=== PATIENT | female | born 1955 | race Caucasian/White ===

== ENCOUNTER 2017-04-29 06:15 | Outpatient (CLI) | payer OTHER ==
[~2017-04-29 06:15] MED LIST: BIOT5TAB PO; BUPR150T6 PO; CYCL-394 PO; DOCU100C40 PO; FLUT10SP NS; LANS30CA56 PO; MELO-83 PO; MONT10TA21 PO; MULT-785 PO; TRAM50TA2 PO; VALA10002 PO; ZOLP5TAB8 PO
[2017-05-12] MEDS ORDERED: EPIN0.3P8 IM (08:58)
[2017-05-12] MEDS ORDERED: ASPI-144 (08:58)
== END 2017-04-29 23:59 | disposition home or self-care (01) ==
LOC: 64 CT 06:15
PROVIDERS: ATTEND Otolaryngology
DX: B47.9 Mycetoma, unspecified (principal); F17.200 Nicotine dependence, unspecified, uncomplicated; Z85.828 Personal history of other malignant neoplasm of skin
CPT/HCPCS: 70450; 70487

== ENCOUNTER 2017-05-14 05:52 | Day surgery (SDC) | payer OTHER ==
[2017-05-14] VITALS (11 sets, daily range): BP systolic 129–151; BP diastolic 70–92
[~2017-05-14] VITALS: Ht 167.6 cm; Wt 78.9 kg
[~2017-05-14 05:52] MED LIST changes: +ASPI-144; -BIOT5TAB PO; -DOCU100C40 PO; +EPIN0.3P8 IM; -VALA10002 PO; +famotidine 20mg tablet PO ONE; +ringers solution, lacted 1,000 ML IV SCH
[2017-05-14] MEDS ORDERED: LIDOcaine 1% (10mg/ml) 2ml vial ONE (06:22)
[2017-05-14] MEDS ORDERED: cocaine 4% topical solution 4ml bottle ONE (06:31)
[2017-05-14] MEDS ORDERED: mupirocin 2% ointment 22GM ONE ×2 (06:31→06:54)
[2017-05-14] MEDS ORDERED: scopolamine 1.5mg patch.TD72 TD ONE (06:45)
[2017-05-14] MEDS ORDERED: LACT1CAP65 PO (06:46)
[2017-05-14] MEDS ORDERED: DOCU-28 PO (06:47)
[2017-05-14] MEDS ORDERED: cefTAZidime 1gm inj IV ONE (07:15)
[2017-05-14] MEDS ORDERED: LIDOCAINE 1% IJ ONE (07:30)
[2017-05-14] MEDS ORDERED: EPINEPHRINE IJ ONE ×2 (07:30→07:35)
[2017-05-14] MEDS ORDERED: BUPIVACAINE 0.5% IJ ONE (07:35)
[2017-05-14] MEDS ORDERED: sevoflurane 250ml liquid IH ONE (08:06)
[2017-05-14] MEDS ORDERED: fentaNYL/PF 50MCG/1 ML 2ML syringe ONE (08:10)
[2017-05-14] MEDS ORDERED: midazolam 2 mg/2 ml injection ONE (08:11)
[2017-05-14] MEDS ORDERED: propofol inj 20 ML IV ONE (08:13)
[2017-05-14] MEDS: oxymetazoline 15 ML nasal spray NS ONE ×2 (08:45→10:12)
[2017-05-14] MEDS ORDERED: ringers solution, lacted 1,000 ML IV SCH (09:04)
[2017-05-14] MEDS ORDERED: proCHLORperazine 10 MG/2 ml inj IV PRN (09:05)
[2017-05-14] MEDS ORDERED: morphine sulfate 8 MG/ML SYRINGE IV PRN ×2 (09:05)
[2017-05-14] MEDS ORDERED: ondansetron/PF 4mg/2ml inj IV PRN (09:05)
[2017-05-14] MEDS ORDERED: meperidine/PF 25mg/ml syringe IV PRN ×3 (09:05)
[2017-05-14] MEDS ORDERED: dexamethasone sod phosphate 4mg/ml inj. ONE (09:23)
[2017-05-14] MEDS ORDERED: rocuronium 10mg/ml inj IV ONE (09:23)
[2017-05-14] MEDS ORDERED: ondansetron/PF 4mg/2ml inj ONE (09:24)
[2017-05-14] MEDS ORDERED: salt irrigation nasal spray 45 ML SPRAY NS SCH (11:00)
[2017-05-14] MEDS ORDERED: mupirocin 2% ointment 22GM TP SCH (13:00)
[2017-05-14] MEDS ORDERED: oxymetazoline 15 ML nasal spray NS SCH (20:00)
== END 2017-05-14 11:38 | disposition home or self-care (01) ==
LOC: PAS 05:52
PROVIDERS: ATTEND Otolaryngology
DX: J34.3 Hypertrophy of nasal turbinates (principal); J34.1 Cyst and mucocele of nose and nasal sinus
CPT/HCPCS: 30140; 31255; 31288; 61782; 87070; 87102; 87176; 93005; A6449; C9250; J0171; J1100; J2250; J2405; J2704; J3010; J3490; J7030; J7120; A7000; J0713

== ENCOUNTER 2017-05-31 07:06 | Outpatient (CLI) | payer OTHER ==
[~2017-05-31 07:06] MED LIST changes: +DOCU-28 PO; +LACT1CAP65 PO; -famotidine 20mg tablet PO ONE; -ringers solution, lacted 1,000 ML IV SCH
[2017-06-01 08:22] LABS: IMMUNOGLOBULIN A, QN, SERUM 192 mg/dL (87-352); IMMUNOGLOBULIN M, QN, SERUM 108 mg/dL (26-217)
[2017-06-02 11:16] LABS: IMMUNOGLOBULIN G, QN, SERUM 856 mg/dL (700-1600)
== END 2017-05-31 23:59 | disposition home or self-care (01) ==
LOC: LAB 07:06
PROVIDERS: ATTEND Otolaryngology
DX: D80.3 Selective deficiency of immunoglobulin G [IgG] subclasses (principal); F17.200 Nicotine dependence, unspecified, uncomplicated; Z85.828 Personal history of other malignant neoplasm of skin
CPT/HCPCS: 36415; 82784; 82785; 82787

== ENCOUNTER 2017-08-04 13:38 | Outpatient (CLI) | payer OTHER | END 2017-08-04 23:59 | disposition home or self-care (01) | LOC: LAB 13:38 | PROVIDERS: ATTEND Otolaryngology | DX: D80.3 Selective deficiency of immunoglobulin G [IgG] subclasses (principal) | CPT/HCPCS: 36415 ==

== ENCOUNTER 2018-01-11 15:07 | Outpatient (CLI) | payer OTHER | END 2018-01-11 23:59 | disposition home or self-care (01) | LOC: RAD 15:07 | PROVIDERS: ATTEND Family Medicine | DX: M25.861 Other specified joint disorders, right knee (principal); M25.561 Pain in right knee; Z90.710 Acquired absence of both cervix and uterus; Z96.652 Presence of left artificial knee joint; Z79.82 Long term (current) use of aspirin | CPT/HCPCS: 73564 ==

== ENCOUNTER 2018-06-13 11:38 | Outpatient (CLI) | payer OTHER | END 2018-06-13 23:59 | disposition home or self-care (01) | LOC: RAD 11:38 | PROVIDERS: ATTEND Family Medicine | DX: S83.231A Complex tear of medial meniscus, current injury, right knee, initial encounter (principal); M25.461 Effusion, right knee; Z79.899 Other long term (current) drug therapy; Z88.2 Allergy status to sulfonamides; Z91.018 Allergy to other foods; Z88.8 Allergy status to other drugs, medicaments and biological substances; X58.XXXA Exposure to other specified factors, initial encounter; Y93.89 Activity, other specified; Y92.89 Other specified places as the place of occurrence of the external cause; Y99.8 Other external cause status | CPT/HCPCS: 73721 ==

== ENCOUNTER 2018-08-03 05:32 | Inpatient (IN) | payer OTHER ==
[2018-07-27 09:33] LABS: BASOPHILS % (AUTO) 0.2 % (0-1); EOSINOPHILS # (AUTO) 0.1 X10'3 (0-0.9); EOSINOPHILS % (AUTO) 1.7 % (0-6); LYMPHOCYTES # (AUTO) 1.7 X10'3 (1.1-4.8); LYMPHOCYTES % (AUTO) 31.2 % (21-51); MEAN CORPUSCULAR HEMOGLOBIN 28.7 PG (27.0-31.0); MEAN CORPUSCULAR HGB CONC 33.3 g/dL (33.0-36.5); MEAN CORPUSCULAR VOLUME 86.2 FL (78-98); MEAN PLATELET VOLUME 8.1 FL (7.4-10.4); MONOCYTES # (AUTO) 0.6 X10'3 (0-0.9); MONOCYTES % (AUTO) 11.1 % (2-12); NEUTROPHILS % (AUTO) 55.8 % (42-75); PRE OP HEMATOCRIT 39.4 % (35.0-45.0); PRE OP HEMOGLOBIN 13.1 g/dL (12.0-16.0); PRE OP PLATELET COUNT 247 X10'3 (140-440); RED BLOOD COUNT 4.57 X10'6 (4.20-5.60); RED CELL DISTRIBUTION WIDTH 13.1 % (11.5-14.5)
[2018-07-27 09:34] LABS: ALBUMIN 3.7 G/DL (3.4-5.0); ALBUMIN/GLOBULIN RATIO 1.1 (1.1-1.5); ALKALINE PHOSPHATASE 75 IU/L (46-116); BLOOD UREA NITROGEN 19 MG/DL (7-18); BUN/CREATININE RATIO 22.1 (6.6-38.0); CALCIUM 9.4 MG/DL (8.5-10.1); CHLORIDE 104 MMOL/L (99-107); CREATININE 0.86 MG/DL (0.40-0.90); PRE OP ALT 31 U/L (30-65); PRE OP ANION GAP 7 (8-16); PRE OP AST 20 U/L (10-37); PRE OP BILIRUB, TOTAL 0.4 MG/DL (0.0-1.0); PRE OP GLUCOSE 87 MG/DL (70-104); PRE OP POTASSIUM 4.1 MMOL/L (3.4-5.1); PRE OP SODIUM 140 MMOL/L (135-145); TOTAL CARBON DIOXIDE 28.8 MMOL/L (24-32); TOTAL PROTEIN 7.1 G/DL (6.4-8.2); eGFR 67 ML/MIN
[2018-08-03] VITALS (17 sets, daily range): BP systolic 110–142; BP diastolic 55–91
[~2018-08-03] VITALS: Ht 167.6 cm; Wt 77.1 kg
[~2018-08-03 05:32] MED LIST changes: -ASPI-144; +FIBER PO; +acetaminophen 325mg tablet PO ONE; +ceFAZolin 2gm in dextrose, iso 100 ML IV ONE; +famotidine 20mg tablet PO ONE; +gabapentin 300mg capsule PO ONE; +oxyCODONE SR 10mg (sust. release) tab -2 tabs (20mg) PO ONE; +ringers solution, lacted 1,000 ML IV SCH; +scopolamine 1.5mg patch.TD72 TD ONE; +tranexamic acid inj. 1,000 MG in normal saline 100 ML IV ONE; +vancomycin inj 1,500 MG in normal saline 300ml IV soln IV ONE
[2018-08-03] MEDS ORDERED: LIDOcaine 1% (10mg/ml) 2ml vial ONE (05:51)
[2018-08-03] MEDS ORDERED: ceFAZolin 1000mg inj ONE ×2 (06:54→07:01)
[2018-08-03] MEDS ORDERED: BUPIVAcaine/PF 2.5mg/ml (0.25%) 10ml vial ONE (06:54)
[2018-08-03] MEDS ORDERED: vancomycin 1,000mg inj ONE (07:01)
[2018-08-03] MEDS ORDERED: fentaNYL/PF 50MCG/1 ML 2ML syringe ONE (07:18)
[2018-08-03] MEDS ORDERED: MIDAZolam 1mg/ml 10ml vial ONE (07:18)
[2018-08-03] MEDS ORDERED: [UNRECOGNIZED DRUG - OTHER] IU ONE ×5 (07:25)
[2018-08-03] MEDS ORDERED: EPINEPHRINE IU ONE ×5 (07:25)
[2018-08-03] MEDS ORDERED: KETOROLAC TROMETH IU ONE ×5 (07:25)
[2018-08-03] MEDS ORDERED: ROPIVACAINE IU ONE ×5 (07:25)
[2018-08-03] MEDS ORDERED: mupirocin 2% ointment 22GM ONE (07:46)
[2018-08-03] MEDS ORDERED: ringers solution, lacted 1,000 ML IV SCH (08:29)
[2018-08-03] MEDS ORDERED: proCHLORperazine 10 MG/2 ml inj IV PRN (08:30)
[2018-08-03] MEDS ORDERED: meperidine/PF 25mg/ml syringe IV PRN ×3 (08:30)
[2018-08-03] MEDS ORDERED: morphine 4 MG/ML inj SYRINge IV PRN ×2 (08:30)
[2018-08-03] MEDS ORDERED: ondansetron/PF 4mg/2ml inj IV PRN ×2 (08:30→10:20)
[2018-08-03] MEDS ORDERED: ROPIVAcaine 0.5% (5mg/ml) 30ml vial ONE (10:03)
[2018-08-03] MEDS ORDERED: dexamethasone sod phosphate 4mg/ml inj. ONE (10:03)
[2018-08-03] MEDS ORDERED: HYDROmorphone inj. 0.5 MG/0.5 ML DISP.SYRIN IV PRN (10:20)
[2018-08-03] MEDS ORDERED: magnesium hydroxide 30ml (MOM) UD suspension PO PRN (10:20)
[2018-08-03] MEDS ORDERED: HYDROmorphone 1 mg/ml syringe IV PRN (10:20)
[2018-08-03] MEDS ORDERED: acetaminophen 325mg tablet PO PRN (10:20)
[2018-08-03] MEDS ORDERED: bisacodyl 10mg suppository rectal RC PRN (10:20)
[2018-08-03] MEDS ORDERED: diphenhydrAMINE 25mg capsule PO PRN ×2 (10:20)
--- NOTE | 2018-08-03 10:54 | NUR ---
Received from OR via , accompanied by Anesthesiologist TRIP and report given by Anesthesiolgist. AWAKE IN NO RESP DISTRESS SKIN WARM AND DRY HOB AND FOB ELEVATED. FEET WARM PINK GOOD CAP REFILL AND PEDAL PULSES. NO CO PAIN , SCDS ON, HUSSEIN SECURED WITH CLEAR YELLOW URINE.ALDO ACOSTAG DI, HAS ON-C. HAS HYPOALLERGENIC SHEETS.
[2018-08-03] MEDS ORDERED: cyclobenzaprine 10mg tablet PO PRN (11:15)
[2018-08-03] MEDS ORDERED: zolpidem 5mg tablet PO PRN (11:15)
[2018-08-03] MEDS: ROPIVAcaine 0.2%/PF PAIN PUMP 550 ML IJ SCH (11:34)
--- NOTE | 2018-08-03 12:07 | NUR ---
Report called to receiving nurse. Transferred via BED Belongings . Special Issues communicated to receiving nurse.AWAKE VS WNL NO CO PAIN, DSG DI, ON-Q AT 8. ALDO DSG DI, SCDS CONT, HUSSEIN WITH QS CLEAER YELLOW URINE. GOOD PEDAL PULSES. PT IN HER OWN GOWN. TO ROOM WITH .
[2018-08-03] MEDS ORDERED: tranexamic acid inj. 800 MG in normal saline 100ml IV soln 100 ML IV ONE (13:30)
[2018-08-03] MEDS: gabapentin 300mg capsule PO SCH ×2 (14:37→20:30)
[2018-08-03] MEDS: potassium cl 20mEq in 1/2 NS 1,000 ML IV SCH ×2 (14:37→18:19)
[2018-08-03] MEDS: acetaminophen 325mg tablet PO SCH ×2 (14:37→20:30)
[2018-08-03] MEDS: oxyCODONE IR 5mg (immed. release) tablet PO PRN ×2 (14:48→20:00)
--- NOTE | 2018-08-03 18:39 | NUR ---
Report to Soila BENAVIDES
[2018-08-03] MEDS: docusate sod 100mg capsule PO SCH (20:00)
[2018-08-03] MEDS ORDERED: vancomycin/NS 1 GM ADD-VANTAGE 250 ML IV SCH (20:00)
[2018-08-03] MEDS: buPROPion 75mg tablet PO SCH (20:00)
[2018-08-03] MEDS: lactobacillus rhamnosus 10,000 MMU CELLS/CAPSULE PO SCH (20:29)
[2018-08-03] MEDS: sennosides 8.6mg tablet PO SCH (20:30)
[2018-08-04] VITALS (7 sets, daily range): BP systolic 109–142; BP diastolic 55–88
[2018-08-04] MEDS: oxyCODONE IR 5mg (immed. release) tablet PO PRN ×4 (02:06→17:05)
[2018-08-04] MEDS: acetaminophen 325mg tablet PO SCH ×4 (02:07→20:21)
[2018-08-04] MEDS: potassium cl 20mEq in 1/2 NS 1,000 ML IV SCH ×3 (02:12→20:19)
--- NOTE | 2018-08-04 06:00 | NUR ---
Patient in room ORTHO 4016. I have received report from Soila BENAVIDES and had the opportunity to ask questions and assume patient care.
[2018-08-04] MEDS ORDERED: calcium polycarbophil 625mg tablet PO SCH (08:00)
[2018-08-04] MEDS: pantoprazole 40mg Tablet.DR PO SCH (08:03)
[2018-08-04] MEDS: fluticasone nasal spray 16GM bottle NS SCH (08:04)
[2018-08-04] MEDS: lactobacillus rhamnosus 10,000 MMU CELLS/CAPSULE PO SCH ×2 (08:06→20:20)
[2018-08-04] MEDS: docusate sod 100mg capsule PO SCH ×2 (08:06→20:21)
[2018-08-04] MEDS: gabapentin 300mg capsule PO SCH ×3 (08:07→20:21)
[2018-08-04] MEDS: montelukast 10mg tablet PO SCH (08:07)
[2018-08-04] MEDS: multivitamins, therapeutics tablet PO SCH (08:08)
[2018-08-04] MEDS: buPROPion 75mg tablet PO SCH ×2 (08:09→20:21)
[2018-08-04] MEDS: aspirin 325mg tablet PO SCH (08:09)
[2018-08-04] MEDS ORDERED: ASPI-1 PO (08:15)
[2018-08-04 08:58] LABS: BASOPHILS % (AUTO) 0.2 % (0-1); EOSINOPHILS # (AUTO) 0.1 X10'3 (0-0.9); EOSINOPHILS % (AUTO) 1.1 % (0-6); HEMATOCRIT 36.4 % (35.0-45.0); HEMOGLOBIN 12.2 g/dl (12.0-16.0); LYMPHOCYTES # (AUTO) 1.6 X10'3 (1.1-4.8); LYMPHOCYTES % (AUTO) 21.2 % (21-51); MEAN CORPUSCULAR HEMOGLOBIN 28.8 PG (27.0-31.0); MEAN CORPUSCULAR HGB CONC 33.4 g/dL (33.0-36.5); MEAN CORPUSCULAR VOLUME 86.3 FL (78-98); MEAN PLATELET VOLUME 8.2 FL (7.4-10.4); MONOCYTES % (AUTO) 13.2 % (2-12); NEUTROPHILS # (AUTO) 4.8 X10'3 (1.8-7.7); NEUTROPHILS % (AUTO) 64.3 % (42-75); PLATELET COUNT 204 X10'3 (140-440); RED BLOOD COUNT 4.21 X10'6 (4.20-5.60); RED CELL DISTRIBUTION WIDTH 13.7 % (11.5-14.5); WHITE BLOOD COUNT 7.5 X10'3 (4.5-11.0)
[2018-08-04 08:59] LABS: ALBUMIN 3.1 G/DL (3.4-5.0); ANION GAP 4 (8-16); BLOOD UREA NITROGEN 10 MG/DL (7-18); BUN/CREATININE RATIO 13.3 (6.6-38.0); CALCIUM 8.9 MG/DL (8.5-10.1); CHLORIDE 107 MMOL/L (99-107); CREATININE 0.75 MG/DL (0.40-0.90); GLUCOSE 100 MG/DL (70-104); SODIUM 143 MMOL/L (135-145); TOTAL CARBON DIOXIDE 31.6 MMOL/L (24-32); eGFR 79 ML/MIN
--- NOTE | 2018-08-04 11:01 | NUR ---
Joint replacement consult: Pt seen by CLARY for written/verbal high protein ed. RD reviewed high protein needs for wound healing, immune strength, high protein foods, and protein supplementation options. RD contact information provided in case of further questions. Pt agrees to chocolate Hero high protein shake BIDBD; pt has allergies to oranges, onions, bananas, apples, dislikes milk to drink and cream of wheat, pepper, and ravi peppers; CLARY d/w dietary. Addendum: 08/04/18 at [address] Amended: Links added.
--- NOTE | 2018-08-04 11:33 | NUR ---
Student documentation: I have reviewed all interventions, assessments performed and documented by Pauline Forrester. Student Medication Administration: For this medication-pass time frame, all medication were reviewed, dispensed, administered and documented per hospital policy by Pauline Forrester.
--- NOTE | 2018-08-04 16:49 | NUR ---
Student documentation: I have reviewed and agree with all interventions, assessments performed and documented by SN Timmy.
[2018-08-04] MEDS ORDERED: High Protein Shake w/Arg/Glut/Ca2+Bmb (Juven 19.3gm) pkt 240ml PO SCH (17:30)
--- NOTE | 2018-08-04 18:00 | NUR ---
Problems reprioritized. Patient report given, questions answered & plan of care reviewed with Simona BENAVIDES.
--- NOTE | 2018-08-04 18:17 | NUR ---
Patient in room ORTHO 4016. I have received report from KENNEDY Norris and had the opportunity to ask questions and assume patient care.
[2018-08-04] MEDS: sennosides 8.6mg tablet PO SCH (20:21)
[2018-08-04] MEDS: ROPIVAcaine 0.2%/PF PAIN PUMP 550 ML IJ SCH (20:28)
[2018-08-05] MEDS: oxyCODONE IR 5mg (immed. release) tablet PO PRN ×2 (00:34→05:40)
[2018-08-05] MEDS: acetaminophen 325mg tablet PO SCH ×2 (02:00→07:57)
[2018-08-05] MEDS: potassium cl 20mEq in 1/2 NS 1,000 ML IV SCH (02:19)
[2018-08-05 06:00] VITALS: BP 164/80
--- NOTE | 2018-08-05 06:00 | NUR ---
Patient in room ORTHO 4016. I have received report from Simona BENAVIDES and had the opportunity to ask questions and assume patient care.
--- NOTE | 2018-08-05 06:10 | NUR ---
Problems reprioritized. Patient report given, questions answered & plan of care reviewed with KENNEDY Al.
[2018-08-05] MEDS: multivitamins, therapeutics tablet PO SCH (07:56)
[2018-08-05] MEDS: docusate sod 100mg capsule PO SCH (07:56)
[2018-08-05] MEDS: pantoprazole 40mg Tablet.DR PO SCH (07:56)
[2018-08-05] MEDS: aspirin 325mg tablet PO SCH (07:56)
[2018-08-05] MEDS: gabapentin 300mg capsule PO SCH (07:56)
[2018-08-05] MEDS: lactobacillus rhamnosus 10,000 MMU CELLS/CAPSULE PO SCH (07:57)
[2018-08-05] MEDS: montelukast 10mg tablet PO SCH (07:57)
[2018-08-05] MEDS: buPROPion 75mg tablet PO SCH (07:57)
[2018-08-05] MEDS: fluticasone nasal spray 16GM bottle NS SCH (07:57)
[2018-08-05 10:00] VITALS: BP 152/88
[2018-08-05] MEDS ORDERED: acetaminophen 325mg tablet PO PRN (10:20)
--- NOTE | 2018-08-05 12:53 | NUR ---
Patient stable for discharge home with sister today at 1230. All discharge instructions given to patient and all questions answered. All belongings sent home with patient accompanied by sister.
== END 2018-08-05 12:30 | disposition home health service (06) | DRG 470 ==
LOC: PAS 05:32 → EDSTATUS 07:30 → ORTHO 4S 10:19
PROVIDERS: ADMIT Orthopaedic Surgery; ATTEND Orthopaedic Surgery
PROC: 0SRC0L9 Replacement of Right Knee Joint with Medial Unicondylar Synthetic Substitute, Cemented, Open Approach (ICD-10-PCS; 2018-08-03)
PROC: 0SBC0ZZ Excision of Right Knee Joint, Open Approach (ICD-10-PCS; 2018-08-03)
PROC: 3E0T3BZ Introduction of Anesthetic Agent into Peripheral Nerves and Plexi, Percutaneous Approach (ICD-10-PCS; principal; 2018-08-03 07:51)
DX: M17.11 Unilateral primary osteoarthritis, right knee (principal); M67.461 Ganglion, right knee; M23.041 Cystic meniscus, anterior horn of lateral meniscus, right knee; K21.9 Gastro-esophageal reflux disease without esophagitis; K58.9 Irritable bowel syndrome, unspecified; F32.9 Major depressive disorder, single episode, unspecified; Z88.2 Allergy status to sulfonamides; Z88.1 Allergy status to other antibiotic agents; Z88.8 Allergy status to other drugs, medicaments and biological substances; Z91.048 Other nonmedicinal substance allergy status; Z79.899 Other long term (current) drug therapy; Z85.828 Personal history of other malignant neoplasm of skin
CPT/HCPCS: 36415; 80048; 80053; 82948; 85025; 87070; 93005; 97110; 97116; 97161; 97530; A6449; A6455; A7000; C1713; C1758; C1776; C9250; G0378; J0171; J0690; J1100; J1885; J2250; J2270; J2405; J2795; J3010; J3370; J3490; J7030; J7120

== ENCOUNTER 2018-10-25 06:55 | Outpatient (CLI) | payer OTHER ==
[~2018-10-25 06:55] MED LIST changes: +ASPI-1 PO; -acetaminophen 325mg tablet PO ONE; -ceFAZolin 2gm in dextrose, iso 100 ML IV ONE; -famotidine 20mg tablet PO ONE; -gabapentin 300mg capsule PO ONE; -oxyCODONE SR 10mg (sust. release) tab -2 tabs (20mg) PO ONE; -ringers solution, lacted 1,000 ML IV SCH; -scopolamine 1.5mg patch.TD72 TD ONE; -tranexamic acid inj. 1,000 MG in normal saline 100 ML IV ONE; -vancomycin inj 1,500 MG in normal saline 300ml IV soln IV ONE
[2018-10-25 07:45] LABS: BASOPHILS % (AUTO) 0.8 % (0-1); EOSINOPHILS # (AUTO) 0.1 X10'3 (0-0.9); EOSINOPHILS % (AUTO) 2.2 % (0-6); HEMATOCRIT 39.7 % (35.0-45.0); HEMOGLOBIN 13.2 g/dl (12.0-16.0); LYMPHOCYTES # (AUTO) 1.9 X10'3 (1.1-4.8); LYMPHOCYTES % (AUTO) 35.6 % (21-51); MEAN CORPUSCULAR HEMOGLOBIN 28.8 PG (27.0-31.0); MEAN CORPUSCULAR HGB CONC 33.4 g/dL (33.0-36.5); MEAN CORPUSCULAR VOLUME 86.2 FL (78-98); MEAN PLATELET VOLUME 8.3 FL (7.4-10.4); MONOCYTES # (AUTO) 0.6 X10'3 (0-0.9); MONOCYTES % (AUTO) 11.1 % (2-12); NEUTROPHILS # (AUTO) 2.7 X10'3 (1.8-7.7); NEUTROPHILS % (AUTO) 50.3 % (42-75); PLATELET COUNT 252 X10'3 (140-440); RED CELL DISTRIBUTION WIDTH 13.5 % (11.5-14.5); WHITE BLOOD COUNT 5.3 X10'3 (4.5-11.0)
[2018-10-25 07:51] LABS: CLARITY,URINE CLEAR (Clear); COLOR,URINE STRAW (Yellow); GLUCOSE, URINE NEGATIVE (Neg); KETONES,URINE NEGATIVE (Neg); LEUKOCYTE ESTERASE ,URINE NEGATIVE (Neg); NITRITES, URINE NEGATIVE (Neg); OCCULT BLOOD,URINE NEGATIVE (Neg); PROTEIN,URINE NEGATIVE (Neg); UROBILINOGEN,URINE 0.2 E.U/dL (0.2-1.0)
[2018-10-25 07:55] LABS: UA COLLECTION TYPE CLN CATCH MIDSTREAM
[2018-10-25 08:01] LABS: ALANINE AMINOTRANSFERASE 36 U/L (12-78); ALBUMIN 3.7 G/DL (3.4-5.0); ALKALINE PHOSPHATASE 84 IU/L (46-116); ANION GAP 6 (8-16); ASPARTATE AMINO TRANSFERASE 19 U/L (10-37); BILIRUBIN,TOTAL 0.3 MG/DL (0.1-1.0); BLOOD UREA NITROGEN 21 MG/DL (7-18); BUN/CREATININE RATIO 23.9 (6.6-38.0); CALCIUM 8.8 MG/DL (8.5-10.1); CHLORIDE 103 MMOL/L (99-107); CHOL/HDL RATIO 3.6 (0.00-4.99); CHOLESTEROL 224 MG/DL (0-200); CREATININE 0.88 MG/DL (0.40-0.90); GLUCOSE 84 MG/DL (70-104); HDL CHOLESTEROL 62 MG/DL (35-60); LDL CHOLESTEROL 142 MG/DL (50-100); POTASSIUM 3.8 MMOL/L (3.5-5.1); SODIUM 139 MMOL/L (135-145); TOTAL CARBON DIOXIDE 29.8 MMOL/L (24-32); TOTAL PROTEIN 7.5 G/DL (6.4-8.2); TRIGLYCERIDES 82 MG/DL (20-135); eGFR 65 ML/MIN
== END 2018-10-25 23:59 | disposition home or self-care (01) ==
LOC: LAB 06:55
PROVIDERS: ATTEND Family Medicine
DX: Z00.00 Encounter for general adult medical examination without abnormal findings (principal)
CPT/HCPCS: 36415; 80053; 80061; 81003; 85025

== ENCOUNTER → 2019-10-24 | Outpatient (CLI) | payer OTHER | END | disposition home or self-care (01) | LOC: 64 CT 14:00 | PROVIDERS: ATTEND Otolaryngology | DX: J34.1 Cyst and mucocele of nose and nasal sinus (principal); J32.0 Chronic maxillary sinusitis | CPT/HCPCS: 70486 ==

== ENCOUNTER → 2019-11-22 | Outpatient (CLI) | payer BC ==
[2019-11-22 07:33] LABS: BASOPHILS % (AUTO) 0.9 % (0-1); EOSINOPHILS # (AUTO) 0.1 X10'3 (0-0.9); EOSINOPHILS % (AUTO) 2.5 % (0-6); HEMATOCRIT 39.4 % (35.0-45.0); HEMOGLOBIN 13.1 g/dl (12.0-16.0); LYMPHOCYTES # (AUTO) 1.9 X10'3 (1.1-4.8); LYMPHOCYTES % (AUTO) 33.8 % (21-51); MEAN CORPUSCULAR HGB CONC 33.2 g/dL (33.0-36.5); MEAN CORPUSCULAR VOLUME 87.3 FL (78-98); MEAN PLATELET VOLUME 7.8 FL (7.4-10.4); MONOCYTES # (AUTO) 0.8 X10'3 (0-0.9); MONOCYTES % (AUTO) 13.9 % (2-12); NEUTROPHILS # (AUTO) 2.8 X10'3 (1.8-7.7); NEUTROPHILS % (AUTO) 48.9 % (42-75); PLATELET COUNT 247 X10'3 (140-440); RED BLOOD COUNT 4.51 X10'6 (4.20-5.60); RED CELL DISTRIBUTION WIDTH 14.5 % (11.5-14.5); WHITE BLOOD COUNT 5.7 X10'3 (4.5-11.0)
[2019-11-22 07:42] LABS: CLARITY,URINE CLEAR (Clear); COLOR,URINE STRAW (Yellow); GLUCOSE, URINE NEGATIVE (Neg); KETONES,URINE NEGATIVE (Neg); LEUKOCYTE ESTERASE ,URINE NEGATIVE (Neg); NITRITES, URINE NEGATIVE (Neg); OCCULT BLOOD,URINE NEGATIVE (Neg); PROTEIN,URINE NEGATIVE (Neg); UROBILINOGEN,URINE 0.2 E.U/dL (0.2-1.0)
[2019-11-22 07:43] LABS: UA COLLECTION TYPE CLN CATCH MIDSTREAM
[2019-11-22 07:56] LABS: ALANINE AMINOTRANSFERASE 60 U/L (12-78); ALBUMIN 3.9 G/DL (3.4-5.0); ALKALINE PHOSPHATASE 103 IU/L (46-116); ANION GAP 6 (8-16); ASPARTATE AMINO TRANSFERASE 31 U/L (10-37); BILIRUBIN,TOTAL 0.3 MG/DL (0.1-1.0); BLOOD UREA NITROGEN 24 MG/DL (7-18); CALCIUM 8.7 MG/DL (8.5-10.1); CHLORIDE 105 MMOL/L (99-107); CHOL/HDL RATIO 4.2 (0.00-4.99); CHOLESTEROL 239 MG/DL (0-200); CREATININE 1.09 MG/DL (0.40-0.90); GLUCOSE 88 MG/DL (70-104); HDL CHOLESTEROL 57 MG/DL (35-60); LDL CHOLESTEROL 149 MG/DL (50-100); POTASSIUM 4.5 MMOL/L (3.5-5.1); SODIUM 140 MMOL/L (135-145); TOTAL CARBON DIOXIDE 28.6 MMOL/L (24-32); TOTAL PROTEIN 7.7 G/DL (6.4-8.2); TRIGLYCERIDES 163 MG/DL (20-135); eGFR 51 ML/MIN
== END | disposition home or self-care (01) ==
LOC: LAB 06:29
PROVIDERS: ATTEND Family Medicine
DX: Z00.00 Encounter for general adult medical examination without abnormal findings (principal)
CPT/HCPCS: 36415; 80053; 80061; 81003; 84439; 84443; 85025

== ENCOUNTER → 2019-11-24 | Outpatient (CLI) | payer BC | END | disposition home or self-care (01) | LOC: 64 CT 13:31 | PROVIDERS: ATTEND Otolaryngology | DX: J32.3 Chronic sphenoidal sinusitis (principal); J34.1 Cyst and mucocele of nose and nasal sinus; J01.00 Acute maxillary sinusitis, unspecified | CPT/HCPCS: 70486 ==

== ENCOUNTER 2019-11-28 06:00 | Outpatient (CLI) | payer BC ==
[2019-11-29 11:14] LABS: IMMUNOGLOBULIN A, QN, SERUM 194 mg/dL (87-352); IMMUNOGLOBULIN G, QN, SERUM 1042 mg/dL (586-1602); IMMUNOGLOBULIN M, QN, SERUM 111 mg/dL (26-217)
[2019-12-12] MEDS ORDERED: ITRA10SO2 (08:21)
[2019-12-12] MEDS ORDERED: GLUC1CAP36 PO (08:21)
[2019-12-12] MEDS ORDERED: ITRA100C PO (08:21)
== END 2019-11-28 23:59 | disposition home or self-care (01) ==
LOC: LAB 06:00
PROVIDERS: ATTEND Otolaryngology
DX: Z01.812 Encounter for preprocedural laboratory examination (principal)
CPT/HCPCS: 36415; 82784

== ENCOUNTER 2019-12-19 06:15 | Day surgery (SDC) | payer BC ==
[2019-12-12 08:40] LABS: BASOPHILS % (AUTO) 0.6 % (0-1); EOSINOPHILS # (AUTO) 0.1 X10'3 (0-0.9); LYMPHOCYTES % (AUTO) 38.3 % (21-51); MEAN CORPUSCULAR HEMOGLOBIN 29.1 PG (27.0-31.0); MEAN CORPUSCULAR HGB CONC 33.4 g/dL (33.0-36.5); MEAN PLATELET VOLUME 8.3 FL (7.4-10.4); MONOCYTES # (AUTO) 0.6 X10'3 (0-0.9); MONOCYTES % (AUTO) 11.3 % (2-12); NEUTROPHILS # (AUTO) 2.4 X10'3 (1.8-7.7); NEUTROPHILS % (AUTO) 47.8 % (42-75); PRE OP HEMATOCRIT 39.1 % (35.0-45.0); PRE OP HEMOGLOBIN 13.1 g/dL (12.0-16.0); PRE OP PLATELET COUNT 227 X10'3 (140-440); RED BLOOD COUNT 4.49 X10'6 (4.20-5.60); RED CELL DISTRIBUTION WIDTH 14.5 % (11.5-14.5)
[2019-12-12 08:55] LABS: PRE OP PROTIME 10.1 SECONDS (9.0-12.0)
[2019-12-12 09:10] LABS: ALBUMIN 3.7 G/DL (3.4-5.0); ALKALINE PHOSPHATASE 84 IU/L (46-116); BLOOD UREA NITROGEN 19 MG/DL (7-18); BUN/CREATININE RATIO 22.6 (6.6-38.0); CALCIUM 8.9 MG/DL (8.5-10.1); CHLORIDE 103 MMOL/L (99-107); CREATININE 0.84 MG/DL (0.40-0.90); PRE OP ALT 33 U/L (30-65); PRE OP ANION GAP 8 (8-16); PRE OP BILIRUB, TOTAL 0.3 MG/DL (0.0-1.0); PRE OP GLUCOSE 97 MG/DL (70-104); PRE OP POTASSIUM 4.2 MMOL/L (3.4-5.1); PRE OP SODIUM 139 MMOL/L (135-145); TOTAL PROTEIN 7.4 G/DL (6.4-8.2); eGFR 69 ML/MIN
[2019-12-12 09:13] LABS: PRE OP AST 29 U/L (10-37)
[~2019-12-19] VITALS: Ht 162.6 cm; Wt 82.4 kg
[2019-12-19] VITALS (12 sets, daily range): BP systolic 133–158; BP diastolic 78–92
[~2019-12-19 06:15] MED LIST changes: -ASPI-1 PO; -FIBER PO; +GLUC1CAP36 PO; +ITRA100C PO; +ITRA10SO2; +famotidine 20mg tablet PO ONE; +oxymetazoline 15 ML nasal spray NS PRN; +ringers solution, lacted 1,000 ML IV SCH
[2019-12-19] MEDS ORDERED: oxymetazoline 15 ML nasal spray NS ONE (06:39)
[2019-12-19] MEDS ORDERED: cefTAZidime 1gm inj ONE (06:39)
[2019-12-19] MEDS ORDERED: mupirocin 2% ointment 22GM ONE (06:39)
[2019-12-19] MEDS ORDERED: BUPIVAcaine 0.5% W/EPI /PF 30ml vial ONE (06:39)
[2019-12-19] MEDS ORDERED: methylPREDNISolone acetate 80mg/ml inj**IM only ONE (06:39)
[2019-12-19] MEDS ORDERED: LIDOcaine 1% W/epiNEPHrine 1:100,000 20ml vial ONE (06:39)
[2019-12-19] MEDS ORDERED: cocaine 4% topical solution 4ml bottle ONE (06:39)
[2019-12-19] MEDS ORDERED: scopolamine 1.5mg patch.TD72 TD ONE (06:55)
[2019-12-19] MEDS ORDERED: VAL5T PO (07:16)
[2019-12-19] MEDS ORDERED: fentaNYL/PF 50MCG/1 ML 2ML syringe ONE (07:56)
[2019-12-19] MEDS ORDERED: midazolam 2 mg/2 ml injection ONE (07:57)
[2019-12-19] MEDS ORDERED: propofol inj 20 ML IV ONE (07:57)
[2019-12-19] MEDS ORDERED: LIDOcaine 1% (10mg/ml) 2ml vial ONE (07:57)
[2019-12-19] MEDS ORDERED: morphine 2 MG/ML inj. syringe IV PRN (08:05)
[2019-12-19] MEDS ORDERED: morphine 4 MG/ML inj SYRINge IV PRN (08:05)
[2019-12-19] MEDS ORDERED: proCHLORperazine 10 MG/2 ml inj IV PRN (08:05)
[2019-12-19] MEDS ORDERED: ringers solution, lacted 1,000 ML IV SCH (08:05)
[2019-12-19] MEDS ORDERED: ondansetron/PF 4mg/2ml inj IV PRN (08:05)
[2019-12-19] MEDS ORDERED: meperidine/PF 25mg/ml syringe IV PRN ×2 (08:05)
[2019-12-19] MEDS ORDERED: dexamethasone sod phosphate 4mg/ml inj. ONE (09:01)
[2019-12-19] MEDS ORDERED: ondansetron/PF 4mg/2ml inj ONE (09:58)
--- NOTE | 2019-12-19 10:22 | NUR ---
Received from OR via , accompanied by Anesthesiologist DR VOGT and report given by Anesthesiolgist. AWAKENS TO VOICE. VITALS STABLE. DRESSING DI. KITTY PAIN.
[2019-12-19] MEDS ORDERED: salt irrigation nasal spray 45 ML SPRAY NS PRN (10:50)
[2019-12-19] MEDS: meperidine/PF 25mg/ml syringe IV PRN ×3 (11:02→11:28)
[2019-12-19] MEDS ORDERED: HYDROcodone/acetaminophen 5mg/325mg tablet PO ONE (11:30)
--- NOTE | 2019-12-19 12:02 | NUR ---
AWAKE AND ORIENTED. VITALS STABLE. DRESSING DI. STATES PAIN IMPROVING. HOME WITH HER SPOUSE AT THIS TIME.
[2019-12-19] MEDS ORDERED: oxymetazoline 15 ML nasal spray NS SCH (20:00)
== END 2019-12-19 12:02 | disposition home or self-care (01) ==
LOC: PAS 06:15
PROVIDERS: ATTEND Otolaryngology
DX: J32.3 Chronic sphenoidal sinusitis (principal); K21.9 Gastro-esophageal reflux disease without esophagitis; M19.90 Unspecified osteoarthritis, unspecified site; G89.29 Other chronic pain; Z79.899 Other long term (current) drug therapy; Z11.59 Encounter for screening for other viral diseases; Z79.01 Long term (current) use of anticoagulants; Z90.710 Acquired absence of both cervix and uterus; Z98.890 Other specified postprocedural states; Z88.2 Allergy status to sulfonamides; Z88.1 Allergy status to other antibiotic agents; Z96.653 Presence of artificial knee joint, bilateral
CPT/HCPCS: 31288; 36415; 61782; 80053; 82948; 85025; 85576; 85610; 85730; 87635; 93005; A6402; C1726; C9250; C9803; J0713; J1040; J1100; J2001; J2175; J2250; J2405; J2704; J3010; J7040; J7120; U0003; A4618; A7000

== ENCOUNTER → 2020-11-29 | Outpatient (CLI) | payer BC ==
[~2020-11-29] MED LIST changes: +BUPR-317 PO; -BUPR150T6 PO; +DIAZ5TAB22 PO; -famotidine 20mg tablet PO ONE; -oxymetazoline 15 ML nasal spray NS PRN; -ringers solution, lacted 1,000 ML IV SCH
[2020-11-29 08:58] LABS: CLARITY,URINE CLEAR (Clear); COLOR,URINE YELLOW (Yellow); GLUCOSE, URINE NEGATIVE (Neg); KETONES,URINE NEGATIVE (Neg); LEUKOCYTE ESTERASE ,URINE NEGATIVE (Neg); NITRITES, URINE NEGATIVE (Neg); OCCULT BLOOD,URINE NEGATIVE (Neg); PH,URINE 5.5 (4.8-8.0); PROTEIN,URINE NEGATIVE (Neg); UROBILINOGEN,URINE 0.2 E.U/dL (0.2-1.0)
[2020-11-29 09:01] LABS: BASOPHILS % (AUTO) 0.4 % (0-1); EOSINOPHILS # (AUTO) 0.1 X10'3 (0-0.9); EOSINOPHILS % (AUTO) 1.4 % (0-6); HEMATOCRIT 39.4 % (35.0-45.0); HEMOGLOBIN 13.2 g/dl (12.0-16.0); LYMPHOCYTES % (AUTO) 36.1 % (21-51); MEAN CORPUSCULAR HEMOGLOBIN 29.1 PG (27.0-31.0); MEAN CORPUSCULAR HGB CONC 33.5 g/dL (33.0-36.5); MEAN PLATELET VOLUME 8.2 FL (7.4-10.4); MONOCYTES # (AUTO) 0.7 X10'3 (0-0.9); NEUTROPHILS # (AUTO) 2.8 X10'3 (1.8-7.7); NEUTROPHILS % (AUTO) 50.1 % (42-75); PLATELET COUNT 252 X10'3 (140-440); RED BLOOD COUNT 4.53 X10'6 (4.20-5.60); RED CELL DISTRIBUTION WIDTH 13.7 % (11.5-14.5); WHITE BLOOD COUNT 5.6 X10'3 (4.5-11.0)
[2020-11-29 09:03] LABS: UA COLLECTION TYPE NON-SPECIFIED
[2020-11-29 09:36] LABS: ALANINE AMINOTRANSFERASE 40 U/L (12-78); ALBUMIN 3.9 G/DL (3.4-5.0); ALBUMIN/GLOBULIN RATIO 1.1 (1.1-1.5); ALKALINE PHOSPHATASE 84 IU/L (46-116); ANION GAP 9 (8-16); ASPARTATE AMINO TRANSFERASE 23 U/L (10-37); BILIRUBIN,TOTAL 0.3 MG/DL (0.1-1.0); BLOOD UREA NITROGEN 19 MG/DL (7-18); BUN/CREATININE RATIO 21.8 (6.6-38.0); CALCIUM 8.5 MG/DL (8.5-10.1); CHLORIDE 104 MMOL/L (99-107); CHOL/HDL RATIO 3.3 (0.00-4.99); CHOLESTEROL 231 MG/DL (0-200); CREATININE 0.87 MG/DL (0.40-0.90); GLUCOSE 91 MG/DL (70-104); HDL CHOLESTEROL 69 MG/DL (35-60); LDL CHOLESTEROL 155 MG/DL (50-100); POTASSIUM 4.2 MMOL/L (3.5-5.1); SODIUM 141 MMOL/L (135-145); TOTAL CARBON DIOXIDE 27.6 MMOL/L (24-32); TOTAL PROTEIN 7.4 G/DL (6.4-8.2); TRIGLYCERIDES 84 MG/DL (20-135); eGFR 66 ML/MIN
== END | disposition home or self-care (01) ==
LOC: LAB 08:17
PROVIDERS: ATTEND Family Medicine
DX: Z00.01 Encounter for general adult medical examination with abnormal findings (principal)
CPT/HCPCS: 36415; 80053; 80061; 81003; 84439; 84443; 85025

== ENCOUNTER 2021-07-10 10:20 | Outpatient (CLI) | payer BC ==
[~2021-07-10 10:20] MED LIST changes: -ITRA100C PO; +[UNRECOGNIZED DRUG - CODE] PO
== END 2021-07-10 23:59 | disposition home or self-care (01) ==
LOC: RAD 10:20
PROVIDERS: ATTEND Orthopaedic Surgery
DX: S64.02XA Injury of ulnar nerve at wrist and hand level of left arm, initial encounter (principal); M19.042 Primary osteoarthritis, left hand; X58.XXXA Exposure to other specified factors, initial encounter; Y93.89 Activity, other specified; Y92.89 Other specified places as the place of occurrence of the external cause; Y99.8 Other external cause status
CPT/HCPCS: 73130